=== PATIENT | female | born 2005 | race Caucasian/White ===

== ENCOUNTER 2023-08-10 12:32 | Emergency (ER) | payer OTHER, SELFPAY ==
[2023-08-10 12:37] VITALS: BP 127/78; PULSE 75; RESP 16; TEMP 37.1; O2SAT 99; BMI 21.9
--- NOTE | 2023-08-10 12:47 | DI.RAD.S_ITS ---
PROCEDURE: XR CHEST 2V INDICATIONS: left sided chest pain TECHNIQUE: 2 views of the chest were acquired. COMPARISON: None. FINDINGS: Surgical changes and devices: None. Lungs and pleura: Lungs are clear. No pleural effusions or pneumothorax. Mediastinum: Mediastinal contours are normal. Heart size is normal. Bones and chest wall: No suspicious bony abnormalities. Soft tissues appear unremarkable. IMPRESSION: No acute cardiopulmonary abnormality is seen. Dictated by: Deon Gasca M.D. on 08/10/2023 at 13:20 Approved by: Deon Gasca M.D. on 08/10/2023 at 13:20
--- NOTE | 2023-08-10 14:16 | ED.EXTPRO ---
HPI - Extremity Problem <Lisa Rojas, MEDIA COORDINATOR-BC - Last Filed: 08/10/23 16:29> General Chief complaint: Extremity Problem,Nontraumatic Stated complaint: Sharp pains down lt arm following SOB x6 months Time Seen by Provider: 08/10/23 14:08 Source: patient Mode of arrival: Ambulatory History of Present Illness HPI Narrative: Carol Gerber is a 18-year-old female with no medical history or medications, presented to the ED department complaining that yesterday she was walking while at work had a sudden onset of acute shortness of breath which then developed into left arm pain without radiation, her legs became weak and she collapsed to the floor, no loss of consciousness. She reports 5-6 months of similar episodes w/out collaspe, episodes of acute shortness of breath lasting approximately 2 minutes with left arm pain that presents immediately before or immediately after shortness of breath, with no numbness but noted some occasional tingling in the left hand 4th digit. These events onset randomly during activity, and/or rest. The the shortness of breaths sensation lasts approximately 2 minutes while the left arm pain can continue for a few hours -a full day. Patient denies any knowledge of any aggravating or resolving factors. During these events she denies any changes in vision, diaphoresis, dizziness, numbness, loss of consciousness, loss of balance or coordination, extremity edema, or chest pain. Patient denies any irregular, skipping, rapid heart rate or palpitations. Denies any cardiac or respiratory history. Patient is adopted, family history unknown. Patient denies any recent illness, no heavy menstruation, or bleeding, no nausea vomiting, diarrhea, fever, body aches, chills, recent illness or exposure. Denies any recent travel or risk factors for PE. Does not smoke, no control. Patient on his any urinary symptoms urgency frequency dysuria. She reports chronic weakness to the left arm, and does not exercise or strengthen it regularly with her regular exercise. 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 Full ROM. Patient notes the events wake her in the night she has not tried any interventions takes no medications including Tylenol ibuprofen. Does not stretch regularly, and has not had her workstation evaluated for ergonomics. Patient's co-worker is at the bedside and reports that the patient has poor oral intake and does not eat regularly. Patient denies recent weight loss. Patient is currently resting comfortably in no distress alert and orientated in exam room. Review of Systems <EMANUEL Davis - Last Filed: 08/10/23 16:29> Review of Systems Narrative: All 12 point systems reviewed with the patient and are negative except otherwise documented. Patient History <EMANUEL Davis - Last Filed: 08/10/23 16:29> Family History (Updated 08/10/23 @ 15:26 by EMANUEL Davis) Other Adopted Social History Smoking Status: Never smoker Smoking Status: Never smoker alcohol intake frequency: other (None) Substance Use Type: does not use Exam <EMANUEL Davis - Last Filed: 08/10/23 16:29> Narrative Exam Narrative: General: Patient is a well-developed, well-nourished in no distress at this time. HEENT: Normocephalic, atraumatic, extraocular muscles intact, oral pharynx is clear and mucous membranes are moist. Neck is supple and symmetric, trachea is midline, no adenopathy, no thyroid enlargement, nontender, no masses palpated. Negative for JVD Chest: Normal AP diameter and contour without kyphoscoliosis, Equal chest rise without nasal flaring, retractions, tachypneic or labored breathing. Lungs: Auscultation of all lung cortez are clear without adventitious sounds, wheezes, rhonchi, or rales. Cardio: regular rate and rhythm without murmur, rubs, or gallops, no carotid bruit, no cardiac pulsations present. Abdomen: Soft nontender, negative for organomegaly, or masses. Bowel sounds are present in all 4 quadrants without guarding or rebound, no CVA tenderness. Musculoskeletal: Pt is right handed. 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 Negative Tinels/Phalen Left. Left cervical muscle tenderness with palpation. Negative Full range of motion intact radial and pedal pulses are normal. Skin: Pale, Warm dry and intact without rashes, ulcerations or petechiae. Neuro: Alert and orientated x3, moves all extremities, sensation to touch intact, no gross deficits noted of cranial nerves. Psych: Patient has a well-kept appearance, appropriate affect, mental status attitude thought context and judgment are appropriate for age. Initial Vital Signs Initial Vital Signs: Vital Signs Temperature 98.7 F 08/10/23 12:37 Pulse Rate 75 08/10/23 12:37 Respiratory Rate 16 08/10/23 12:37 Blood Pressure 127/78 08/10/23 12:37 Pulse Oximetry 99 08/10/23 12:37 Oxygen Delivery Method Room Air 08/10/23 12:37 <Renetta Luther DO - Last Filed: 08/11/23 10:53> Initial Vital Signs Initial Vital Signs: Vital Signs Temperature 98.7 F 08/10/23 12:37 Pulse Rate 75 08/10/23 12:37 Respiratory Rate 16 08/10/23 12:37 Blood Pressure 127/78 08/10/23 12:37 Pulse Oximetry 99 08/10/23 12:37 Oxygen Delivery Method Room Air 08/10/23 12:37 Scores <EMANUEL Davis - Last Filed: 08/10/23 16:29> HEART Score Heart Score history: Slightly Suspicious Heart Score EKG: Normal Heart Score Age: < 45 years old Heart Score risk factors: No known risk factors PERC Score Age greater than or equal to 50 years: No Heart rate greater than or equal to 100 bpm: No Room Air O2 Sat less than 95%: No Unilateral leg swelling: No Recent trauma or surgery: No Hemoptysis: No Prior PE or DVT: No Hormone Use: No Total PERC Score: 0 Wells' Criteria for PE Clinical signs and symptoms of DVT: No PE is #1 Dx or equally likely: No Heart rate > 100: No Immobilization at least 3 days or surg in previous 4 weeks: No History of PE or DVT: No Hemoptysis: No Malignancy w/Treatment within 6 months or palliative: No Wells' PE Score total: 0 <Renetta Luther DO - Last Filed: 08/11/23 10:53> PERC Score Total PERC Score: 0 Wells' Criteria for PE Wells' PE Score total: 0 Course <EMANUEL Davis - Last Filed: 08/10/23 16:29> Course Course Narrative: Based on patient exam and history ruled out chest pain/cardiac. EKG interpretation sinus rhythm rate of [address] or T-wave changes, shortened [place] interval. Chest x-ray negative for any acute cardiopulmonary process, Complete orthostatics-r/o orthostatic hypotension, blood sugar check:Blood sugar r/o DMI. HCG- r/o ,, UA dip-r/o UTI. Orders Ordered: ED Orders 08/10/23 12:47 XR chest 2V Stat EKG-12 Lead Stat 08/10/23 15:21 A1C [Hemoglobin A1C% w Est Avg Glu] Stat Vital Signs Vital signs: Vital Signs - 8 hr 08/10/23 12:37 08/10/23 15:18 08/10/23 15:32 Temperature 98.7 F Pulse Rate 75 83 Pulse Rate [Orthostatic Lying] 74 Pulse Rate [Orthostatic Sitting] 79 Pulse Rate [Orthostatic Standing] 71 Respiratory Rate 16 16 Blood Pressure 127/78 113/74 Blood Pressure [Orthostatic Lying] 108/72 Blood Pressure [Orthostatic Sitting] 113/77 Blood Pressure [Orthostatic Standing] 116/88 Pulse Oximetry 99 98 Oxygen Delivery Method Room Air Room Air <Renetta Luther DO - Last Filed: 08/11/23 10:53> Orders Ordered: ED Orders 08/10/23 12:47 XR chest 2V Stat EKG-12 Lead Stat 08/10/23 15:21 A1C [Hemoglobin A1C% w Est Avg Glu] Stat Vital Signs Vital signs: Vital Signs - 8 hr 08/10/23 12:37 08/10/23 15:18 08/10/23 15:32 Temperature 98.7 F Pulse Rate 75 83 Pulse Rate [Orthostatic Lying] 74 Pulse Rate [Orthostatic Sitting] 79 Pulse Rate [Orthostatic Standing] 71 Respiratory Rate 16 16 Blood Pressure 127/78 113/74 Blood Pressure [Orthostatic Lying] 108/72 Blood Pressure [Orthostatic Sitting] 113/77 Blood Pressure [Orthostatic Standing] 116/88 Pulse Oximetry 99 98 Oxygen Delivery Method Room Air Room Air MDM - Extremity (Nontraumatic) <EZEQUIEL Davis-BC - Last Filed: 08/10/23 16:29> Lab Data Lab results narrative: Blood sugar: 77 A1c: 5.5 UA: Negative HCG: Negative Labs: Lab Results 08/10/23 Range/Units 15:41 Hemoglobin A1c 5.5 (4.0-6.0) % Point of Care Testing Test Results Negative Glucose POC 77 Urine Dip Bedside Urine Glucose Negative Bedside Urine Bilirubin - Negative Bedside Urine Ketone +++ 80 Urine Specific Crescent 1.025 Bedside Urine Occult Blood - Negative Bedside Urine pH 6.0 Bedside Urine Protein - Negative Bedside Urine Urobilinogen - Negative Bedside Urine Nitrite - Negative Bedside Urine Leukocytes - Negative Esterase Imaging Data Chest x-ray: My Impression: I personally reviewed chest x-ray images negative for any acute cardiopulmonary process. ECG Data Attestation EKG: I personally reviewed and interpreted this ECG as follows: (Sinus rhythm with a rate of [address] or T-wave changes, short [place] interval) MDM Narrative Medical decision making narrative: CC: Left upper extremity pain with episodes of shortness of breath, for the past 5-6 months that included leg weakness and collapsed to the floor yesterday. Complicating co-morbidities: None Data collected from: patient and co -worker Social determinants of health that may influence the patients condition: Adopted- family hx unknown Medical records reviewed:Yes Differential considered: Rule out: PE, upper extremity DVT, musculoskeletal overuse injury, carpal tunnel, chest pain, ACS, hypoglycemia, orthostatic hypotension, anemia. Exam documented above, pertinent findings include: Left upper extremity functional weakness chronic. Lab Test results independently reviewed as above. Pertinent findings: Blood sugar 77, A1c 5.5, orthostatics are within normal limits, hCG: negative, UA: Negative Independently reviewed EKG as above:see above Imaging studies independently reviewed: CXR see above Consultations:None Treatments:None Re-evaluations: <Renetta Luther, - Last Filed: 08/11/23 10:53> Lab Data Labs: Lab Results 08/10/23 Range/Units 15:41 Hemoglobin A1c 5.5 (4.0-6.0) % Point of Care Testing Test Results Negative Glucose POC 77 Urine Dip Bedside Urine Glucose Negative Bedside Urine Bilirubin - Negative Bedside Urine Ketone +++ 80 Urine Specific Crescent 1.025 Bedside Urine Occult Blood - Negative Bedside Urine pH 6.0 Bedside Urine Protein - Negative Bedside Urine Urobilinogen - Negative Bedside Urine Nitrite - Negative Bedside Urine Leukocytes - Negative Esterase ECG Data Interpretation: Ashkan-sinus rhythm rate 73 AZ interval 108 QRS 68 QTC 436 T-wave inversion noted in lead [address] depression elevations or priors to compare Discharge Plan Departure Patient Disposition: Home Clinical Impression: Left arm pain, Hypoglycemia Activity Restrictions/Additional Instructions: Left upper extremity pain: Please follow-up with your PCP: Recommend physical therapy, stretching- for strengthening and increased range of motion, ice, heat, anti-inflammatories like Tylenol or ibuprofen for muscle pain and discomfort, ergonomic evaluation of workstation prevent overuse injuries. Hypogylcemia: You were found to have a low blood sugar while in the ED, we preformed a A1C to check your 3 month average of blood sugars - to rule out diabetes. -encourage you to eat a well-balanced diet, adequate hydration to avoid dehydration, consider small snacks every 2 hours. -schedule to follow up with your PCP for evaluation for possible nutritional deficits like anemia. If you develop chest pain, shortness of breath, left arm, jaw, back, or shoulder pain numbness tingling, loss of consciousness-please seek emergency medical care. Referrals: ProviderMarisa [Primary Care Provider] - Stand Alone Forms: Patient Portal/API ED Sign-out <Renetta Luther DO - Last Filed: 08/11/23 10:53> Cosign ED Attending Saturnino Attestation: I was immediately available in the department for consultation. Documentation has been reviewed.
[2023-08-10 15:18] VITALS: BP 113/74; PULSE 83; RESP 16; O2SAT 98
[2023-08-10 15:32] VITALS: BP 108/72; BP 113/77; BP 116/88; PULSE 71; PULSE 74; PULSE 79
[2023-08-10 15:53] LABS: Hemoglobin A1C% w Est Avg Glu 5.5 % (4.0-6.0)
== END 2023-08-10 16:43 | disposition home or self-care (01) ==
PROVIDERS: Emergency Provider Nurse Practitioner Family
DX: M79.602 Pain in left arm (principal); E16.2 Hypoglycemia, unspecified; R06.02 Shortness of breath; R07.9 Chest pain, unspecified
CPT/HCPCS: 71046; 81003; 81025; 82962; 83036; 93005; 93010; 99283; 99284